=== PATIENT | female | born 1945 | race African-American/Black ===

== ENCOUNTER → 2017-05-15 | Day surgery (SDC) | payer MEDICARE ==
--- NOTE | 2017-05-10 14:39 | Diagnostic Imaging Report ---
PROCEDURE: Frontal and lateral views of the chest. COMPARISON: Chest x-ray 01/01/2017. INDICATIONS: PRE OPERATIVE CHEST X-RAY FOR FOOT SURGERY FINDINGS: Lines/tubes: None. Lungs: The lungs are moderately inflated. Trace bibasilar atelectasis. There is no evidence of pneumonia or pulmonary edema. Pleura: There is no pleural effusion or pneumothorax. Heart and mediastinum: The heart and the mediastinum are normal. Bones: No acute bony abnormality. IMPRESSION: No acute cardiopulmonary disease. Dictated by: Jones Arguello M.D. on 05/10/2017 at 14:46 Electronically approved by: Jones Arguello M.D. on 05/10/2017 at 14:46
[2017-05-10 14:44] LABS: BASOPHILS # (AUTO) 0.1 (0.0-0.1); BASOPHILS % 1.2 % (0.0-1.0); EOSINOPHILS # (AUTO) 0.3 (0.0-0.4); EOSINOPHILS % 3.5 % (0.0-6.0); HEMATOCRIT 48.7 % (34.2-44.1); HEMOGLOBIN 15.5 g/dL (12.0-16.0); LYMPHOCYTES % 36.4 % (18.0-39.1); MEAN CORPUSCULAR HEMOGLOBIN 30.8 pg (28-32); MEAN CORPUSCULAR HGB CONC 31.8 g/dL (31-35); MEAN CORPUSCULAR VOLUME 96.8 fL (81-99); MONOCYTES # (AUTO) 0.8 (0.2-0.8); MONOCYTES % 9.6 % (4.4-11.3); NEUTROPHILS % 48.3 % (38.7-80.0); PLATELET COUNT 137 x10e3/uL (140-360); RED BLOOD COUNT 5.03 x10e6/uL (3.6-5.1); RED CELL DISTRIBUTION WIDTH 12.2 % (11.7-14.4)
[~2017-05-15] MED LIST: AMLODIPINE BESYL5 MG PO; B COMPLEX WITH1 EACH PO; BETAMETHASONE DISODIUM PHOS 6 MG/ML VIAL ONE; BUPIVACAINE HCL 0.5% INJ 30 ML VIAL INJ ONE; CEFAZOLIN SOD 2 GM/D5W 50ML 50 ML IV ONE; DEXAMETHASONE SOD PHOS INJ 4 MG/ML VIAL ONE; EPHEDRINE SULFATE INJ 50 MG/10 ML SYR ONE; FENOFIBRATE145 MG PO; FENTANYL CITRATE/PF 100MCG/2 ML INJ ONE; LEVOTHYROXINE150 MCG PO; LIDOCAINE HCL 2% LOCAL INJ 5 ML SDV VIAL INJ ONE; MELOXICAM15 MG PO; MIDAZOLAM HCL 2 MG/2 ML VIAL ONE; ONDANSETRON HCL INJ 2 MG/ML VIAL ONE; POTASSIUM PO; PROPOFOL IV EMULSION 10 MG/ML 20 ML VIAL ONE; SEVOFLURANE INHAL SOLN 250 ML PEN BTL ONE; VITAMIN E PO; [UNRECOGNIZED DRUG - OTHER] PO
--- NOTE | 2017-05-15 09:18 | Diagnostic Imaging Report ---
PROCEDURE:X-RAY RIGHT FOOT, TWO VIEWS COMPARISON:None. INDICATIONS:STATUS POST RIGHT FOOT SURGERY FINDINGS: See conclusion. CONCLUSION: AP and lateral post-operative views of the right foot with overlying bandage material show post-surgical changes with a screw traversing the distal diaphysis of the first metatarsal. There is surrounding soft-tissue swelling consistent with recent surgery. Please refer to performing physician's notes for full details of this procedure. Dictated by: Rohan Zaidi M.D. on 05/15/2017 at 9:26 Electronically approved by: Rohan Zaidi M.D. on 05/15/2017 at 9:26
--- NOTE | 2017-05-15 09:30 | Operative Report ---
DATE OF PROCEDURE: May 15, 2017 PREOPERATIVE DIAGNOSES 1. Painful hallux valgus deformity. 2. Exostosis of 1st and 2nd toes, right foot. POSTOPERATIVE DIAGNOSES 1. Painful hallux valgus deformity. 2. Exostosis of 1st and 2nd toes, right foot. 3. Hypertrophic scar formation, right foot. PROCEDURES 1. Seferino bunionectomy. 2. Exostectomy of 1st and 2nd toes, right foot, with revision of scar. 3. Revision of scar, right foot. 4. Intraoperative use of fluoroscopy. 5. Trigger point shot of cortisone. ANESTHESIA: General. HEMOSTASIS: Pneumatic thigh tourniquet at 350 mmHg. PROCEDURE IN DETAIL: The patient was taken into the operating room and placed on the operating room table in the supine position. Following induction of general anesthesia by the anesthesiologist, Webril wraps were placed on the patient's right thigh followed by application of a right thigh tourniquet. The right lower extremity was then prepped and draped in the usual aseptic manner. The following procedure was then performed: PROCEDURE #1: Seferino bunionectomy, right foot. Attention was directed to the dorsomedial aspect of the 1st MPJ where a 6 cm linear incision was performed. Incision deepened via sharp dissection and blunt dissection being careful to retract any vital structures and ligate any superficial vessels as necessary. Once the level of the capsule was reached, a longitudinal capsulotomy was then performed exposing a dorsomedial exostosis of the 1st metatarsal head. Via the use of an oscillating saw and rotating bur, dorsomedial exostosis was excised from the operation site in toto. All rough and bony edges were rasped smooth. PROCEDURES 2 AND 3: Exostosis of 1st and 2nd digits of the right foot. Attention was directed to the lateral aspect of the 1st right toe and medial aspect of the 2nd digit, right foot where a 3 cm linear incision was performed. The incision was deepened down to the joint capsule. Longitudinal capsulotomy was performed exposing the exostosis to the lateral aspect of the base of the distal phalanx of the right great toe, and exostosis to the base of the middle phalanx and head of the proximal phalanx of the 2nd digit, right foot. Exostosis was visualized utilizing a Mine 44 bur. The exostosis was excised from the operation site in toto to both the 1st and 2nd digits of the right foot. PROCEDURE #4: Revision of hypertrophic scar, right lower extremity. Attention was redirected back to the dorsal aspect of the 1st MPJ where a curvilinear incision was performed overlying the hypertrophic scar. The scar was excised from the operation site in toto. PROCEDURE #5: Intraoperative use of fluoroscopy was then used to make sure proper excision of bones were performed. All areas were then copiously flushed with sterile antibiotic solution and suctioned. Closure was then obtained utilizing 3-0 Vicryl, 4-0 Vicryl and 4-0 nylon for capsule, subcutaneous tissue and skin respectively. PROCEDURE #6: Trigger point shot of cortisone was then given to the 1st interspace of the right foot. Then approximately 10 mL of 0.5% plain Marcaine were used to achieve local anesthesia about the surgical area. A sterile dressing was applied. Upon release of the thigh tourniquet, blood hyperemia was noted immediate to all digits of the patient's right foot. The patient was then transferred from the OR to recovery room with vital signs stable and neurovascular status intact. No intraoperative complications were encountered. Blood loss from the surgery is minimal. Patient is to remain nonweightbearing with crutches. Keep her foot elevated. Is to apply an ice pack to the ankle joint area. Job#: [id number] NOMAN
== END | disposition home or self-care (01) ==
LOC: OR 07:56
PROVIDERS: ATTEND Podiatrist Foot Surgery
DX: M20.11 Hallux valgus (acquired), right foot (principal); M77.51 Other enthesopathy of right foot and ankle; L91.0 Hypertrophic scar; I10 Essential (primary) hypertension; E78.5 Hyperlipidemia, unspecified; E89.0 Postprocedural hypothyroidism; Z01.810 Encounter for preprocedural cardiovascular examination; Z01.812 Encounter for preprocedural laboratory examination; Z01.818 Encounter for other preprocedural examination
CPT/HCPCS: 11420; 28108 ×2; 28292; 36415; 71020; 73620; 85025; 93005; J0702; J1100; J2001; J2250; J2405; J0720

== ENCOUNTER → 2019-11-17 | Day surgery (SDC) | payer MEDICARE, OTHER ==
[2019-11-13 15:21] LABS: BASOPHILS # (AUTO) 0.1 (0.0-0.1); BASOPHILS % 0.9 % (0.0-1.0); EOSINOPHILS # (AUTO) 0.2 (0.0-0.4); EOSINOPHILS % 2.4 % (0.0-6.0); HEMATOCRIT 43.5 % (34.2-44.1); HEMOGLOBIN 14.1 g/dL (12.0-16.0); LYMPHOCYTES # (AUTO) 2.2 (1.0-3.2); LYMPHOCYTES % 31.7 % (18.0-39.1); MEAN CORPUSCULAR HEMOGLOBIN 30.2 pg (28-32); MEAN CORPUSCULAR HGB CONC 32.4 g/dL (31-35); MEAN CORPUSCULAR VOLUME 93.1 fL (81-99); MONOCYTES # (AUTO) 0.6 (0.2-0.8); MONOCYTES % 8.4 % (4.4-11.3); NEUTROPHILS % 56.5 % (38.7-80.0); PLATELET COUNT 190 x10e3/uL (140-360); RED BLOOD COUNT 4.67 x10e6/uL (3.6-5.1); RED CELL DISTRIBUTION WIDTH 12.6 % (11.7-14.4)
[2019-11-13 15:39] LABS: ANION GAP 13.4 mmol/L (8-16); BLOOD UREA NITROGEN 14 mg/dL (7-26); BUN/CREATININE RATIO 15 (6-25); CALCIUM 9.5 mg/dL (8.4-10.2); CARBON DIOXIDE 24 mmol/L (22-29); CHLORIDE 112 mmol/L (98-107); CREATININE, SERUM 0.91 mg/dL (0.57-1.11); EST GLOMERULAR FILTRATION RATE > 60 ML/MIN (60-); GLUCOSE 95 mg/dL (74-118); POTASSIUM 3.4 mmol/L (3.5-5.1); SODIUM 146 mmol/L (136-145)
--- NOTE | 2019-11-13 16:00 | Diagnostic Imaging Report ---
EXAMINATION: CHEST 2 VIEWS INDICATION: Pre-operative COMPARISON: None FINDINGS: LINES/TUBES:None LUNGS:The lungs are well-inflated. No focal consolidation or pulmonary edema. PLEURA:No pleural effusion or pneumothorax. MEDIASTINUM:The cardiomediastinal silhouette appears normal in size and shape. BONES/SOFT TISSUES:No acute osseous injury. ABDOMEN:No free air under the diaphragm. IMPRESSION: No focal pneumonia or pulmonary edema. Signed by: Lauren Arzola MD on 11/13/2019 3:57 PM
[~2019-11-17] MED LIST changes: +ASPIR 8181 MG PO; +BIOTIN300 MCG PO; +CALCIUM PO; -CEFAZOLIN SOD 2 GM/D5W 50ML 50 ML IV ONE; -EPHEDRINE SULFATE INJ 50 MG/10 ML SYR ONE; +KETOROLAC TROMETHAMINE 30 MG/ML VIAL ONE; +LIDOCAINE HCL 1% LOCAL INJ 20 ML VIAL ONE; +MUPIROCIN 2% OINT 22 GM TUBE ONE; -ONDANSETRON HCL INJ 2 MG/ML VIAL ONE; +ONDANSETRON HCL INJ 2MG/ML 2ML 2 MG/ML VIAL ONE; +SUPER B COMPLEX PO; +VITAMIN D3 PO
[2019-11-17 08:50] VITALS: BP 153/93
--- NOTE | 2019-11-17 09:09 | Diagnostic Imaging Report ---
EXAM: FOOT LEFT AP LAT DATE: 11/17/2019 8:35 AM INDICATION: Postop, bones for COMPARISON: None available. FINDINGS/IMPRESSION: Overlying cast material/dressings limit evaluation. There is no evidence for acute fracture or dislocation. Mild plantar calcaneal spurring noted. The surrounding soft tissues are unremarkable without evidence for radiopaque foreign body. Signed by: Dr. Kaiser Richmond MD on 11/17/2019 9:06 AM
--- NOTE | 2019-11-17 09:56 | Operative Report ---
DATE OF PROCEDURE: 11/17/2019 SURGEON: Sameer Maradiaga DPM PREOPERATIVE DIAGNOSES: 1. Painful hallux valgus deformity, left foot. 2. Painful met cuneiform exostosis, left foot. 3. 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 POSTOPERATIVE DIAGNOSES: Confirmed. OPERATIVE PROCEDURES: 1. Silver bunionectomy, left foot. 2. Met cuneiform exostectomy, left foot. 3. Neurolysis of superficial cutaneous nerve, left foot. 4. Intraoperative use of fluoroscopy. 5. Trigger point shot of cortisone. 6. Application of posterior splint. ANESTHESIA: General. HEMOSTASIS: Pneumatic thigh tourniquet at 350 mmHg. PROCEDURE IN DETAIL: The patient was taken into the operating room and placed on the operating table in supine position. Following induction of general anesthesia by the anesthesiologist, Webril wraps were placed on the patient's left thigh, followed by application of left thigh tourniquet. The left lower extremity was then prepped and draped in the usual aseptic manner and following procedures were then performed. Procedure #1: Silver bunionectomy, left foot. Attention was directed to the dorsal medial aspect of the 1st MPJ, where a 6 cm linear incision was performed. Incision was deepened down to the joint capsule. Longitudinal capsulotomy was then performed exposing the dorsal medial exostosis of the 1st metatarsal head. Via the use of an oscillating saw and rotating bur, dorsal medial exostosis and dorsal exostosis were excised from the operation site in toto. All rough and bony edges were rasped smooth via the use of a rotating bur. Procedure #2: Met cuneiform exostectomy. Attention was then directed to the dorsal aspect of the left lower extremity, overlying the met cuneiform joint, where a 3 to 4 cm linear incision was performed. Incision was deepened via sharp and blunt dissection being careful to retract vital structures and ligate superficial vessels as necessary. Once the level of the met cuneiform capsule was reached, a longitudinal capsulotomy was then performed exposing the met cuneiform exostosis. Via the use of an osteotome and mallet and bone rasp, the met cuneiform exostosis was excised from the operation site in toto. All rough and bony edges were rasped smooth. Procedure #3: Neurolysis of superficial cutaneous nerve. Attention was directed once again to the incision. The incision was then deepened down to the subcutaneous tissue and the superficial cutaneous nerve overlying the met cuneiform exostosis was clearly visualized. Utilizing a blunt dissection, neurolysis was performed. The superficial cutaneous nerve and all adhesions were released via blunt dissection. All areas were then copiously flushed with sterile antibiotic solution and suction. Procedure #4: Intraoperative use of fluoroscopy was then taken to make sure most of the met cuneiform exostosis was excised from the operation site in toto. Closure was then obtained utilizing 3-0 Vicryl, 4-0 Vicryl, and 4-0 nylon for capsule, subcutaneous tissue, and skin respectively. Procedure #5: Trigger point shot of cortisone was then given to the 1st met cuneiform area and 1st interspace of the left foot. Then, approximately 10 mL of 0.5% plain Marcaine plus 10 mL of 1% xylocaine were used to achieve local anesthesia of above-mentioned surgical area. Sterile dressing was applied. Upon release of the thigh tourniquet, blood hyperemia was noted immediate to all digits of the patient's left foot. Procedure #6: Application of posterior splint. A properly placed posterior splint was then applied keeping the foot at 90 degrees with respect to the leg to try for any type of postop complications. The patient was then transferred from the OR to recovery room with vital signs stable and neurovascular status intact. No intraoperative complications were encountered. Blood loss from the surgery was minimal. The patient is to remain nonweightbearing with the aid of crutches, keep her foot elevated, and is to apply an ice pack to the ankle joint area. NÉSTOR Buckner/MAXIMOL /[id number]
== END | disposition home or self-care (01) ==
LOC: OR 05:28
PROVIDERS: ATTEND Podiatrist Foot Surgery
DX: M20.12 Hallux valgus (acquired), left foot (principal); M77.52 Other enthesopathy of left foot and ankle; G58.8 Other specified mononeuropathies; I10 Essential (primary) hypertension; E03.9 Hypothyroidism, unspecified; Z88.0 Allergy status to penicillin; Z01.810 Encounter for preprocedural cardiovascular examination; Z01.812 Encounter for preprocedural laboratory examination; Z01.818 Encounter for other preprocedural examination; Z11.59 Encounter for screening for other viral diseases; Z79.82 Long term (current) use of aspirin
CPT/HCPCS: 28122; 28292; 36415; 64704; 71046; 73620; 80048; 85025; 87635; 93005; J0720; J1100; J1885; J2001 ×2; J2250; J2405; J2704; J3010